=== PATIENT | female | born 1945 | race Asian ===

== ENCOUNTER 2018-11-02 14:07 | Emergency (ER) | payer MEDICARE ==
[~2018-11-02] VITALS: Ht 152.4 cm; Wt 63.6 kg
[2018-11-02 14:24] LABS: GLUCOSE,POINT OF CARE 143 MG/DL (70-110)
[2018-11-02] MEDS ORDERED: LOSA25TA41 PO (14:27)
[2018-11-02] MEDS ORDERED: METF-960 PO (14:27)
[2018-11-02] MEDS ORDERED: ATEN25TA PO (14:27)
[2018-11-02] MEDS ORDERED: ASPI-1182 PO (14:27)
[2018-11-02] MEDS ORDERED: KETOROLAC TROMETHAMINE 30 MG/ML VIAL IM ONE (16:30)
[2018-11-02 18:12] VITALS: BP 150/71
== END 2018-11-02 18:24 | disposition home or self-care (01) ==
LOC: EMS 14:10
DX: M25.561 Pain in right knee (principal); I10 Essential (primary) hypertension; E11.9 Type 2 diabetes mellitus without complications; Z79.84 Long term (current) use of oral hypoglycemic drugs; Z79.82 Long term (current) use of aspirin
CPT/HCPCS: 29505; 73562; 73610; 82962; 96372; 99283; J1885